=== PATIENT | male | born 1965 | race Caucasian/White ===

== ENCOUNTER 2017-07-28 14:16 | Emergency (ER) | payer BC ==
[~2017-07-28] VITALS: Ht 170.2 cm; Wt 119.0 kg
[~2017-07-28 14:16] MED LIST: ALLO300T2 PO; ASPI81TA28 PO; ATOR-26 PO; CLOP1TAB15 PO; LISI20TA3 PO; METO25TA3 PO; NITR0.4S UT; SULI200T4 PO; TAMS0.4C38 PO
[2017-07-28 14:18] VITALS: TEMP 36.7; Ht 170.2 cm; Wt 119.0 kg
[2017-07-28] MEDS ORDERED: KETOROLAC TROMETHAMINE 30 MG/ML VIAL IV STA (16:12)
[2017-07-28] MEDS ORDERED: HYDROmorphone INJ 1 MG/ML SYR IV STA (16:12)
[2017-07-28] MEDS ORDERED: ONDANSETRON INJ 2 MG/ML 2 ML VIAL IV STA (16:12)
[2017-07-28] MEDS ORDERED: SODIUM CHLORIDE 0.9% 1000ML 1,000 ML IV STA ×2 (16:12)
[2017-07-28 16:36] LABS: BASO % 0.1 %; BASO ABS # 0.01 K/uL (0-0.2); COMPLETE YES; EOS % 0.1 %; HEMATOCRIT 41.4 % (42-52); IG% 0.3 %; LYMPH % 7.6 %; LYMPH ABS # 1.18 K/uL (1.2-3.4); MEAN CORPUSCULAR HGB CONC 34.1 g/dl (32-36); MEAN PLATELET VOLUME 10.4 fL (7.4-10.4); MONO % 7.3 %; NEUT % 84.6 %; PLATELET COUNT 203 K/uL (130-400); RED BLOOD COUNT 4.55 M/uL (4.7-6.1); WHITE BLOOD COUNT 15.54 K/uL (4.8-10.8)
[2017-07-28 16:52] LABS: BUN/CREATININE RATIO 14.1 (10-20); CREATININE 1.8 mg/dl (0.60-1.40); POTASSIUM 4.4 mmol/L (3.5-5.1)
[2017-07-28] MEDS ORDERED: PLV75 PO (16:53)
[2017-07-28] MEDS ORDERED: ALL300 PO (16:53)
[2017-07-28] MEDS ORDERED: TPRSR/25 PO (16:53)
[2017-07-28] MEDS ORDERED: TAMS0.4C38 PO ×2 (16:55→18:54)
--- NOTE | 2017-07-28 17:19 | DIAGNOSTIC IMAGING REPORT ---
ABD/PELVIS WITHOUT FOR STONE HISTORY: 52 years-old Male acute right-sided flank pain COMPARISON: CT 10/13/2015 TECHNIQUE: Multiple axial CT images of the abdomen and pelvis were obtained without contrast. A dose lowering technique was used consistent with the principals of RANJITH. FINDINGS: Calcified granulomas of the right lung base are noted in conjunction with scattered noncalcified pulmonary nodules measuring up to 5 mm, likely noncalcified granulomas, similar distribution from comparison study. There is no pneumoperitoneum. Imaged inferior cardiac chambers are unremarkable. Hepatomegaly with hepatosteatosis redemonstrated. Gallbladder, spleen, pancreas and right adrenal gland are unremarkable. There is unchanged nodular thickening of the left adrenal gland suggesting hyperplasia. There are several nonobstructing calculi within the left kidney measuring up to 4 mm. Multiple nonobstructing renal calculi are also seen on the right measuring up to 3 mm. There is mild right-sided hydroureteronephrosis with associated fat stranding secondary to a 6 x 5 x 6 mm calculus of the distal right ureter which is seen at the level of the mid to lower right sacrum a few centimeters proximal to the ureterovesicular junction. Urinary bladder and prostate are unremarkable with a few central prostatic calcifications. The abdominal aorta is normal in course and caliber without bulky adenopathy. Note is made of a retroaortic left renal vein. Small duodenal diverticulum is noted. No bowel obstruction. The appendix is not seen and may be surgically absent. Soft tissues are unremarkable. Bones appear intact. IMPRESSION: 1. Mild right-sided hydroureteronephrosis secondary to a 6 x 5 x 6 mm calculus of the distal right ureter which is located a few centimeters proximal to the ureterovesicular junction. 2. Multiple additional bilateral nonobstructing nephrolithiasis. 3. Hepatomegaly with hepatosteatosis. 4. Evidence of prior granulomatous disease. The above report was generated using voice recognition software. It may contain grammatical, syntax or spelling errors. Electronically signed by: Ozzy Marquez M.D. 07/28/2017 5:17 PM Dictated Date/Time: 07/28/2017 5:11 PM
[2017-07-28 18:36] LABS: URINE APPEARANCE CLEAR (CLEAR); URINE BILIRUBIN NEG (NEG); URINE COLOR YELLOW; URINE EPITHELIAL CELL AUTO 0-5 /lpf (0-5); URINE NITRITE NEG (NEG); URINE PH 5.5 (4.5-7.5); URINE SPECIFIC GRAVITY 1.027 (1.000-1.030); UROBILINOGEN NEG (NEG)
[2017-07-28 18:41] LABS: MANUAL MICROSCOPIC REQUIRED? NO; REVIEW REQ? NO
[2017-07-28 18:46] VITALS: BP 98/68; PULSE 74; O2SAT 98
[2017-07-28] MEDS ORDERED: OXYC1TAB3 PO (18:54)
[2017-07-28] MEDS ORDERED: ONDA4TAB10 SL (18:54)
--- NOTE | 2017-07-28 18:55 | EMERGENCY ROOM VISIT NOTE ---
ED Visit Note First contact with patient: 16:07 CHIEF COMPLAINT: Right flank pain 2 days HISTORY OF PRESENT ILLNESS: Patient is a 52-year-old white male who presents to the emergency department for evaluation of right flank pain 2 days. He states developed a sudden onset of very intense, severe right flank pain wrapping around to the right lower quadrant Friday, 2 days ago. The pain lasted for about 4 hours, then suddenly resolved. He thought he may have passed a stone. Symptoms returned again last evening around 5 PM. Similar severe pain in the right flank radiating to the right lower quadrant and the right groin. He noted hematuria 2 days ago, and again last night, but none today. He reports associated nausea, dry heaves, subjective fever and chills and sweats. He had a leftover prescription for Flomax from his prior kidney stone from 2 years ago, he took this in addition to his Lasix, without relief. He initially rated his pain an 8/10 in triage, in the exam room now he rates his pain a "10.5/10." He has not tried any medications for pain. He last urinated about 8 hours ago. He feels like he has the urge to void but he cannot. He stopped drinking because he was unable to urinate. He denies any vomiting, diarrhea or constipation. Prior kidney stones he has been able to pass on his own. REVIEW OF SYSTEMS: Review of systems as per HPI. All other systems reviewed were negative. 10 systems reviewed. PMH: Electronic medical records are reviewed and summarized as above/below. See Problem List. SOCIAL HISTORY: Patient lives at home with his . He does not smoke. PHYSICAL EXAM: Vital Signs: Reviewed Nurse's notes. CONSTITUTIONAL: Patient is uncomfortable appearing 52-year-old white male who is awake and alert and in moderate distress due to his stated complaint. EYES: Pupils equal, round, reactive to light and accommodation. EOMs intact without nystagmus. Sclera are anicteric. ENT: Tympanic membranes intact, with normal landmarks. External canals are clear. Oral and nasopharynx are clear. Mucous membranes are moist, no lesions , tongue and gums appear normal. NECK: Supple without lymphadenopathy. No thyromegaly. No meningeal signs. Full active range of motion without discomfort. CARDIOVASCULAR: Regular rate and rhythm, with normal S1 and S2, no murmur or gallop or rub is heard. No carotid bruits auscultated. No JVD. Peripheral pulses easily palpable. RESPIRATORY: Breath sounds equal and clear to auscultation without wheezes, rales, or rhonchi heard. Full and equal chest expansion without accessory muscle use or retractions. ABDOMEN: Bowel sounds are present. Abdomen is soft, obese, nontender and nondistended. No guarding or rebound. Positive right CVA tenderness. INTEGUMENTARY: No lesions or rash, normal skin turgor. LYMPH: No lymphadenopathy. EMERGENCY DEPARTMENT COURSE: The patient was seen and examined as above. His old records were reviewed. Bladder scan was from a nursing staff due to the reported urinary retention, he had only 227 mL of urine in the bladder. IV lock was initiated. He was hydrated with normal saline solution and medicated with Toradol, Zofran and Dilaudid for pain. CBC and CMP, lipase and urinalysis ordered. CT scan was ordered to evaluate his right flank pain. Laboratory studies noted a an elevated white count at 15,500, likely related to the stress of pain and illness. H&H 14 and 41, platelet count is normal. Electrolytes are without significant abnormality. He has slight elevation of his BUN and creatinine, 25 and 1.8 respectively. He did have a slightly elevated creatinine couple of years ago, could be related to early chronic kidney disease, may be exacerbated today due to dehydration. LFTs are normal. Lipase is normal. Urinalysis notes hematuria only. No other indicators for infection. CT scan of the abdomen and pelvis noted bilateral nephrolithiasis, and a roughly 6 mm distal right ureteral calculi. All laboratory and diagnostic imaging studies were reviewed with the patient and his at length. The patient was reassessed frequently, and remained pain-free in the emergency department. He tolerated oral fluids without difficulty. He was issued a urine strainer. He was given a prescription for Flomax, oxycodone and Zofran to use. Supportive care measures were discussed. He was educated on the worrisome signs or symptoms for which she should return to the emergency department. He was discharged home with his driving in good condition. He rated his pain a 0/10 at discharge. Differential diagnoses entertained included UTI, pyelonephritis, renal colic, urinary retention, appendicitis, bowel obstruction, perforation, abscess, testicular torsion, hernia, among others. Medication reconciliation: I attest that I have personally reviewed the patient' s current medication list. Blood pressure screening : Patient was found to have normal blood pressure on screening and does not require follow-up. Patient was reviewed in the [facility] Prescription Drug Monitoring Program, and there were no red flags noted. ABD/PELVIS WITHOUT FOR STONE HISTORY: 52 years-old Male acute right-sided flank pain COMPARISON: CT 10/13/2015 TECHNIQUE: Multiple axial CT images of the abdomen and pelvis were obtained without contrast. A dose lowering technique was used consistent with the principals of RANJITH. FINDINGS: Calcified granulomas of the right lung base are noted in conjunction with scattered noncalcified pulmonary nodules measuring up to 5 mm, likely noncalcified granulomas, similar distribution from comparison study. There is no pneumoperitoneum. Imaged inferior cardiac chambers are unremarkable. Hepatomegaly with hepatosteatosis redemonstrated. Gallbladder, spleen, pancreas and right adrenal gland are unremarkable. There is unchanged nodular thickening of the left adrenal gland suggesting hyperplasia. There are several nonobstructing calculi within the left kidney measuring up to 4 mm. Multiple nonobstructing renal calculi are also seen on the right measuring up to 3 mm. There is mild right-sided hydroureteronephrosis with associated fat stranding secondary to a 6 x 5 x 6 mm calculus of the distal right ureter which is seen at the level of the mid to lower right sacrum a few centimeters proximal to the ureterovesicular junction. Urinary bladder and prostate are unremarkable with a few central prostatic calcifications. The abdominal aorta is normal in course and caliber without bulky adenopathy. Note is made of a retroaortic left renal vein. Small duodenal diverticulum is noted. No bowel obstruction. The appendix is not seen and may be surgically absent. Soft tissues are unremarkable. Bones appear intact. IMPRESSION: 1. Mild right-sided hydroureteronephrosis secondary to a 6 x 5 x 6 mm calculus of the distal right ureter which is located a few centimeters proximal to the ureterovesicular junction. 2. Multiple additional bilateral nonobstructing nephrolithiasis. 3. Hepatomegaly with hepatosteatosis. 4. Evidence of prior granulomatous disease. Problem List Medical Problems: (1) Abnormal EKG Status: Resolved (2) Arthropathy Status: Resolved (3) Calculus Of Kidney With Calculus Of Ureter Status: Resolved (4) Chest pain Status: Resolved (5) Coronary Atherosclerosis Of [place] Coronary Vessel Status: Chronic (6) Gout Status: Chronic (7) Hyperlipidemia Nec/Nos Status: Chronic (8) Hypertension Nos Status: Chronic (9) Inability to ambulate due to knee Status: Resolved (10) Inability to ambulate due to right hip Status: Resolved (11) Intractable pain Status: Resolved (12) Knee effusion, right Status: Resolved (13) Knee pain Status: Resolved (14) Left ureteral stone Status: Resolved (15) Old Myocardial Infarct Status: Resolved (16) Pulmonary nodule Status: Chronic (17) Unspecified Sleep Apnea Status: Chronic Surgical Problems: (1) History of uvulopalatopharyngoplasty Status: Resolved (2) Percutaneous Translum Coron Angioplasty Status Status: Chronic Current/Historical Medications Scheduled Allopurinol (Allopurinol), 300 MG PO DAILY Aspirin (Aspirin Ec), 81 MG PO DAILY Atorvastatin (Lipitor), 80 MG PO DAILY Clopidogrel Bisulfate (Clopidogrel), 75 MG PO HOLD Lisinopril (Prinivil), 20 MG PO DAILY Metoprolol Succinate (Metoprolol Succinate ER), 12.5 MG PO DAILY Tamsulosin Hcl (Flomax), 0.4 MG PO DAILY Scheduled PRN Nitroglycerin (Nitrostat), 0.4 MG UT UD PRN for Chest Pain Ondasetron Odt (Zofran Odt), 4 MG SL Q6H PRN for Nausea or Vomiting Oxycodone Immediate Rel Tab (Roxicodone Ir), 1-2 TAB PO Q4H PRN for Severe Pain Tamsulosin Hcl (Flomax), 0.4 MG PO DAILY PRN for Difficulty Voiding Allergies Coded Allergies: No Known Allergies (Unverified , 10/13/15) Vital Signs Date Time Temp Pulse Resp B/P (MAP) Pulse Ox O2 Delivery O2 Flow Rate FiO2 07/28/17 18:46 74 18 98/68 98 Room Air 07/28/17 16:21 96 20 140/94 96 Room Air 07/28/17 14:18 36.7 98 18 166/80 94 Room Air Laboratory Results 07/28/17 16:25 Red Blood Count 4.55, Mean Corpuscular Volume 91.0, Mean Corpuscular Hemoglobin 31.0, Mean Corpuscular Hemoglobin Concent 34.1, Mean Platelet Volume 10.4, Neutrophils (%) (Auto) 84.6, Lymphocytes (%) (Auto) 7.6, Monocytes (%) (Auto) 7.3, Eosinophils (%) (Auto) 0.1, Basophils (%) (Auto) 0.1, Neutrophils # (Auto) 13.16, Lymphocytes # (Auto) 1.18, Monocytes # (Auto) 1.14, Eosinophils # (Auto) 0.01, Basophils # (Auto) 0.01 07/28/17 16:25 Test 07/28/17 16:25 07/28/17 17:58 White Blood Count 15.54 K/uL (4.8-10.8) Red Blood Count 4.55 M/uL (4.7-6.1) Hemoglobin 14.1 g/dL (14.0-18.0) Hematocrit 41.4 % (42-52) Mean Corpuscular Volume 91.0 fL (80-100) Mean Corpuscular Hemoglobin 31.0 pg (25-34) Mean Corpuscular Hemoglobin Concent 34.1 g/dl (32-36) Platelet Count 203 K/uL (130-400) Mean Platelet Volume 10.4 fL (7.4-10.4) Neutrophils (%) (Auto) 84.6 % Lymphocytes (%) (Auto) 7.6 % Monocytes (%) (Auto) 7.3 % Eosinophils (%) (Auto) 0.1 % Basophils (%) (Auto) 0.1 % Neutrophils # (Auto) 13.16 K/uL (1.4-6.5) Lymphocytes # (Auto) 1.18 K/uL (1.2-3.4) Monocytes # (Auto) 1.14 K/uL (0.11-0.59) Eosinophils # (Auto) 0.01 K/uL (0-0.5) Basophils # (Auto) 0.01 K/uL (0-0.2) RDW Standard Deviation 47.0 fL (36.4-46.3) RDW Coefficient of Variation 14.3 % (11.5-14.5) Immature Granulocyte % (Auto) 0.3 % Immature Granulocyte # (Auto) 0.04 K/uL (0.00-0.02) Anion Gap 6.0 mmol/L (3-11) Est Creatinine Clear Calc Drug Dose 59.3 ml/min Estimated GFR () 49.1 Estimated GFR (Non- 42.3 BUN/Creatinine Ratio 14.1 (10-20) Calcium Level 9.0 mg/dl (8.5-10.1) Total Bilirubin 1.0 mg/dl (0.2-1) Aspartate Amino Transf (AST/SGOT) 23 U/L (15-37) Alanine Aminotransferase (ALT/SGPT) 43 U/L (12-78) Alkaline Phosphatase 156 U/L (45-117) Total Protein 7.7 gm/dl (6.4-8.2) Albumin 3.8 gm/dl (3.4-5.0) Globulin 3.9 gm/dl (2.5-4.0) Albumin/Globulin Ratio 1.0 (0.9-2) Lipase 127 U/L (73-393) Urine Color YELLOW Urine Appearance CLEAR (CLEAR) Urine pH 5.5 (4.5-7.5) Urine Specific [place] 1.027 (1.000-1.030) Urine Protein NEG (NEG) Urine Glucose (UA) NEG (NEG) Urine Ketones NEG (NEG) Urine Occult Blood 3+ (NEG) Urine Nitrite NEG (NEG) Urine Bilirubin NEG (NEG) Urine Urobilinogen NEG (NEG) Urine Leukocyte Esterase NEG (NEG) Urine WBC (Auto) 1-5 /hpf (0-5) Urine RBC (Auto) 10-30 /hpf (0-4) Urine Hyaline Casts (Auto) 1-5 /lpf (0-5) Urine Epithelial Cells (Auto) 0-5 /lpf (0-5) Urine Bacteria (Auto) NEG (NEG) Medications Administered Medications (Trade) Dose Ordered Sig/Nilson Route Start Time Stop Time Status Last Admin Dose Admin Sodium Chloride 1,000 ml @ 999 mls/hr Q1H1M STAT IV 07/28/17 16:12 07/28/17 17:12 DC 07/28/17 16:35 999 MLS/HR Sodium Chloride 1,000 ml @ 250 mls/hr Q4H STAT IV 07/28/17 16:12 07/28/17 19:36 DC 07/28/17 17:49 250 MLS/HR Hydromorphone HCl (Dilaudid Inj) 1 mg NOW STAT IV 07/28/17 16:12 07/28/17 16:21 DC 07/28/17 16:35 1 MG Ketorolac Tromethamine (Toradol Inj) 30 mg NOW STAT IV 07/28/17 16:12 07/28/17 16:21 DC 07/28/17 16:36 30 MG Ondansetron HCl (Zofran Inj) 4 mg NOW STAT IV 07/28/17 16:12 07/28/17 16:21 DC 07/28/17 16:36 4 MG Departure Information Impression Primary Impression: Right ureteral calculus Additional Impression: Renal colic Prescriptions Oxycodone Immediate Rel Tab (ROXICODONE IR) 5 Mg Tab 1-2 TAB PO Q4H Y for Severe Pain, #25 TAB For Initial Treatment Prov: Francie Brantley PA 07/28/17 Ondasetron Odt (ZOFRAN ODT) 4 Mg Tab 4 MG SL Q6H Y for Nausea or Vomiting, #20 TAB Prov: Francie Brantley PA 07/28/17 Tamsulosin Hcl (FLOMAX) 0.4 Mg Cap 0.4 MG PO DAILY, #20 CAP Prov: Francie Brantley PA 07/28/17 Referrals Edenilson Ott D.Artur (PCP) Patient Instructions [facility] Additional Instructions DO NOT drive, drink alcohol, operate machinery, or perform dangerous activities today. You were given medications in the ER that can affect your ability to safely function or operate a vehicle. Oxycodone Immediate Release (OxyIR) 5mg: Take 1-2 pills every four hours for pain. Avoid alcohol, operating machinery or dangerous equipment, working on ladders or roofs, DRIVING, or situations where being under the influence may be dangerous. It is recommended to use an [id number] stool softener such as Colace, 100mg twice daily while taking this medication to avoid constipation. Zofran(odansetron) tablets 4mg: Take one and allow it to dissolve in your mouth every four to six hours as needed for nausea or vomiting. Flomax 0.4 m tablet daily until stone passes. Acetaminophen(Tylenol) may be used for fever or pain. Use 1000mg every six hours as needed. Avoid using more than 4000mg in a 24 hour period. This medication can be taken if you need to drive, work, or perform activities which may be dangerous when taking narcotic pain medication. Strain your urine and collect all the stones or debris for the urologists. Rest and avoid strenuous activity until your stone passes and symptoms resolve. Drink plenty of fluids. Continue current medications. Return to the ER for worsening abdominal or back pain, vomiting, fevers, passing out, or as needed. Follow up with your primary care physician in one week for recheck. Follow-up with urology as needed. Problem Qualifiers
== END 2017-07-28 19:08 | disposition home or self-care (01) ==
LOC: C.EDB 14:19 → C.EDA 19:08
DX: N13.2 Hydronephrosis with renal and ureteral calculous obstruction (principal); N23 Unspecified renal colic; M10.9 Gout, unspecified; I25.10 Atherosclerotic heart disease of native coronary artery without angina pectoris; E78.5 Hyperlipidemia, unspecified; I10 Essential (primary) hypertension; I25.2 Old myocardial infarction; G47.30 Sleep apnea, unspecified; Z95.5 Presence of coronary angioplasty implant and graft; Z79.82 Long term (current) use of aspirin; Z79.899 Other long term (current) drug therapy

== ENCOUNTER → 2017-08-08 | Outpatient (CLI) | payer BC ==
[~2017-08-08] MED LIST changes: +ALL300 PO; -ALLO300T2 PO; -CLOP1TAB15 PO; -METO25TA3 PO; +ONDA4TAB10 SL; +OXYC1TAB3 PO; +PLV75 PO; -SULI200T4 PO; +TPRSR/25 PO
--- NOTE | 2017-08-08 13:43 | DIAGNOSTIC IMAGING REPORT ---
KUB CLINICAL HISTORY: Nephrolithiasis. DISTAL RIGHT URETERAL CALCULUS. COMPARISON STUDY: CT scan dated 07/28/2017 FINDINGS: There is no pathologic bowel dilatation. There are multiple tiny left renal calcifications consistent with calculi. At least one right renal calculus is also suspected. There are 3 right-sided pelvic basin calcifications. The superiormost calcification likely corresponds to the previously described distal right ureteral calculus. IMPRESSION: 1. No evidence of pathologic bowel dilatation 2. Bilateral nephrolithiasis 3. Suspected 4 mm distal right ureteral calculus Electronically signed by: Gomez Jane M.D. 08/08/2017 1:41 PM Dictated Date/Time: 08/08/2017 1:38 PM
== END | disposition home or self-care (01) ==
LOC: C.RAD 13:13
PROVIDERS: ATTEND Urology
DX: N20.0 Calculus of kidney (principal)

== ENCOUNTER → 2017-09-08 | Outpatient (CLI) | payer BC | END | disposition home or self-care (01) | LOC: C.LABSPEC 10:05 | PROVIDERS: ATTEND Urology | DX: N20.0 Calculus of kidney (principal) ==

== ENCOUNTER 2022-12-04 13:15 | Observation (INO) ==
[2022-12-04 14:25] LABS: Basophils # (auto) 0.02 K/uL (0-0.2); Basophils % (auto) 0.2 %; Eosinophils # (auto) 0.06 K/uL (0-0.50); Eosinophils % (auto) 0.5 %; Hemoglobin 15.4 g/dl (14.0-18.0); Immature Granulocytes # (auto) 0.04 K/uL (0.00-0.02); Immature Granulocytes % (auto) 0.3 %; Lymphocytes # (auto) 2.01 K/uL (1.2-3.4); Lymphocytes % (auto) 17.3 %; Mean Corpuscular Hemoglobin 32.1 pg (25.0-34.0); Mean Corpuscular Volume 91.7 fL (80.0-100.0); Mean Platelet Volume 11.2 fL (9.4-12.4); Monocytes # (auto) 0.63 K/uL (0.24-0.82); Monocytes % (auto) 5.4 %; Neutrophils # (auto) 8.83 K/uL (1.4-6.5); Neutrophils % (auto) 76.3 %; Platelet Count 209 K/uL (130-400); RDW Coefficient of Variation 13.1 % (11.5-14.5); RDW Standard Deviation 43.8 fL (36.4-46.3); White Blood Count 11.59 K/ul (4.8-10.8)
[2022-12-04 14:52] LABS: Albumin Globulin Ratio 1.4 (0.9-2); Albumin Level 4.3 gm/dl (3.4-5.0); BUN Creatinine Ratio 17.6 (10-20); Bilirubin,Total 0.7 mg/dl (0.2-1.0); Calcium 8.9 mg/dl (8.5-10.1); Creatinine Clr Calc Pharmacy 94.5 ml/min; Est GFR (African American) 87.8 ml/min; Est GFR (Non-African American) 75.8 ml/min; Globulin 3.1 gm/dl (2.5-4.0); Potassium 4.6 mmol/L (3.5-5.1); Total Protein 7.4 gm/dl (6.0-8.3)
[2022-12-04 14:53] LABS: Troponin I High Sensitivity 6.1 pg/ml (0-20)
--- NOTE | 2022-12-04 15:23 | Electrocardiogram Report ---
Test Reason : Blood Pressure : / mmHG Vent. Rate : 127 BPM Atrial Rate : 127 BPM P-R Int : 146 ms QRS Dur : 084 ms QT Int : 300 ms P-R-T Axes : 015 -12 021 degrees QTc Int : 436 ms Sinus tachycardia Otherwise normal ECG When compared with ECG of 11-OCT-2013 09:10, Vent. rate has increased BY 50 BPM Nonspecific T wave abnormality no longer evident in Lateral leads Confirmed by Tramaine Tavares ([id number]) on 12/04/2022 3:22:34 PM Referred By: Confirmed By:Tramaine Tavares
[2022-12-04] MEDS ORDERED: SODIUM CHLORIDE 0.9% 1000ML 1,000 ML IV ONE (15:27)
[2022-12-04] MEDS ORDERED: MECLIZINE HCL 25 MG TAB PO STA (15:27)
--- NOTE | 2022-12-04 15:52 | Emergency Department Note ---
Impression & Plan Dizziness, Pulmonary edema, Cardiomegaly ED Provider Note HISTORY OF PRESENT ILLNESS: Patient is a 57-year-old male presenting with recurrent episodes of dizziness. Patient reports that he has been having episodes of dizziness described as the room spinning for the last few weeks. Reports the episodes occur at random. States that he does seem to notice them when he is changing positions from seated to standing or laying to sitting. He denies any history of vertigo. Denies any recent head injuries or chiropractic manipulation of his neck. Denies any chest pain or shortness of breath. Reports that today while at work he had an episode of dizziness that lasted for about 2 hours. He also had some pain in the left side of his neck. He reports he had an MRI a number of years ago and has a stent in place and the neck pain was similar to his anginal equivalent denies any nausea or vomiting. Denies any changes in vision with the dizziness. Reports his dizziness seems to stop on its own. Denies any recent fevers. Is on aspirin daily. Patient does report that over the last few days he has had some shortness of breath with exertion. Denies any lower extremity edema. Denies any DVT or PE history. ROS: Constitutional: No fever, chills, or weakness Skin: No rash or diaphoresis HENT: No headaches or congestion Eyes: No vision changes Cardio: No chest pain, palpitations or leg swelling Respiratory: No cough, wheezing +Shortness of breath GI: No nausea, vomiting, diarrhea, constipation : No dysuria, polyuria MSK: No joint or back pain Neuro: No loss of sensation, confusion, focal deficits, numbness, tingling +dizziness Psychiatric: No mood changes PHYSICAL EXAM: Constitutional: Patient appears in no acute distress. HENT: Head: Normocephalic and atraumatic. Eyes: EOMI, PERRL. No nystagmus elicited. Ears: TM intact without erythema or bulging. External canals without erythema or discharge. Mouth/Throat: Mucous membranes moist. Neck: Trachea midline. Neck supple. Full ROM of neck without meningismus. Cardiovascular: Tachycardic with regular rhythm. No murmurs, rubs or gallops. Intact distal pulses. Pulmonary/Chest: No respiratory distress. Breath sounds clear and equal bilaterally. No wheezes or rales. Abdominal: BS +. Abdomen soft, no tenderness, rebound or guarding. Back: No midline spinal tenderness, no paraspinal tenderness, no CVA tenderness. Musculoskeletal: No edema, tenderness or deformity noted. Skin: Warm and dry. No rash, erythema, pallor or cyanosis Psychiatric: Appropriate mood and affect for situation. Neurological: Alert and keenly responsive. CN II-XII grossly intact, moving all extremities equally and fully. MDM: - Vitals signs showed tachycardia. - Patient presents with recurrent episodes of dizziness. Patient reports that he has been having multiple episodes of dizziness described as the room spinning over the last few weeks. He had an episode today that lasted around 2 hours and he had some neck pain which is his anginal equivalent, prompting him to present to the emergency department. He is on aspirin. Denies any chest pain or shortness of breath. Denies any headache or changes in vision. - IV established and patient placed on monitor. Patient remained tachycardic for most of his stay in the emergency department - Chronic medical conditions affecting medical care: CAD (s/p PCI); HTN; DM-2 - No external medical records to review. - EKG reviewed by myself showed sinus tachycardia. Heart rate 127 bpm. No evidence of acute ischemic changes or dysrhythmia. - Laboratory workup showed leukocytosis (WBC 11.59); stable hemoglobin; normal dimer; stable electrolytes; normal troponin; transaminitis (AST 43; ALT 63); normal TSH - CT head wo contrast negative for acute intracranial pathology. - CT PE not obtained, as patient's dimer was negative. - Patient given 1L NS in ER with slight improvement in HR down to the low 100s. Given dose of antivert in ER with slight improvement in dizziness. - Dizziness likely secondary to vertigo. However, given patient's cardiac risk factors, will offer admission. - Differential diagnosis included the possibility of both PE and ACS. Regarding PE, dimer negative. - Regarding the possibility of ACS, ECG is without evidence of acute ischemic change. Heart score 4 (History +1 moderately suspicious; EKG +0; Age +1; Risk factors +2 (HTN; DM-2; obesity); Initial troponin +0), amounting to a moderate score. - Discussed results with patient and at bedside. Offered admission, to which they were agreeable. - Hospitalist consulted for admission. - Patient admitted to inpatient [facility]ist service for further evaluation and management. ASSESSMENT AND PLAN: Diagnosis: dizziness; tachycardia; pulmonary edema; cardiomegaly Plan: admit Past Med/Surg History Social History Smoking Status: Never smoker Preferred Language: Kazakh Feels Safe at Home: Yes Allergies Allergies Allergy/AdvReac Type Severity Reaction Status Date / Time No Known Allergies Allergy Unverified 12/04/22 17:33 Home Meds Home Medications Medication Instructions Recorded Confirmed allopurinol 300 mg tablet 300 mg PO QAM 12/04/22 12/04/22 aspirin 81 mg tablet,delayed 81 mg PO DAILY 12/04/22 12/04/22 release atorvastatin 80 mg tablet 80 mg PO QAM 12/04/22 12/04/22 lisinopril 10 mg tablet 10 mg PO QAM 12/04/22 12/04/22 metformin 500 mg tablet,extended 1,000 mg PO QAM 12/04/22 12/04/22 release 24 hr nitroglycerin 0.4 mg sublingual 0.4 mg sublingual UD PRN Chest Pain 12/04/22 12/04/22 tablet (Nitrostat) semaglutide 3 mg tablet (Rybelsus) 3 mg PO QAM 12/04/22 12/04/22 sulindac 200 mg tablet 200 mg PO BID PRN as directed 12/04/22 12/04/22 Results & Data (ED) Vital Signs Vital Signs - 24 hr 12/04/22 13:24 12/04/22 15:10 12/04/22 17:00 Temperature 37.2 C Temperature Source Temporal Artery Scan Pulse Rate 134 H Pulse Rate [Apical] 119 H 105 H Pulse Rhythm Regular Pulse Rhythm [Apical] Regular Pulse Strength Normal Pulse Strength [Apical] Normal Respiratory Rate 20 20 18 Respiratory Effort / Characteristics Non-Labored Spontaneous Non-Labored Spontaneous Respiratory Depth Normal Normal Respiratory Pattern Regular Regular Blood Pressure 141/81 H Blood Pressure [Left Arm] 127/81 142/95 H Blood Pressure Mean 101 Blood Pressure Mean [Left Arm] 96 110 Blood Pressure Position Sitting Blood Pressure Position [Left Arm] Sitting Pulse Oximetry 95 94 95 Oxygen Delivery Method Room Air Room Air Sepsis Recent Fever Within 48 Hours No Sepsis New/Unexplained Change in Mental Status No Sepsis Action Taken by Nursing No Action Required 12/04/22 17:21 Temperature Temperature Source Pulse Rate Pulse Rate [Apical] Pulse Rhythm Pulse Rhythm [Apical] Pulse Strength Pulse Strength [Apical] Respiratory Rate Respiratory Effort / Characteristics Respiratory Depth Respiratory Pattern Blood Pressure Blood Pressure [Left Arm] Blood Pressure Mean Blood Pressure Mean [Left Arm] Blood Pressure Position Blood Pressure Position [Left Arm] Pulse Oximetry Oxygen Delivery Method Room Air Sepsis Recent Fever Within 48 Hours Sepsis New/Unexplained Change in Mental Status Sepsis Action Taken by Nursing Laboratory Data 12/04/22 14:10 12/04/22 14:10 Lab Results 12/04/22 12/04/22 12/04/22 Range/Units 13:29 14:10 14:10 WBC 11.59 H (4.8-10.8) K/ul RBC 4.80 (4.63-6.08) M/uL Hgb 15.4 (14.0-18.0) g/dl Hct 44.0 (40.1-51.0) % MCV 91.7 (80.0-100.0) fL MCH 32.1 (25.0-34.0) pg MCHC 35.0 (32.0-36.0) g/dL RDW Std Deviation 43.8 (36.4-46.3) fL RDW Coeff of Mauricio 13.1 (11.5-14.5) % Plt Count 209 (130-400) K/uL MPV 11.2 (9.4-12.4) fL Immature Gran % (Auto) 0.3 % Neut % (Auto) 76.3 % Lymph % (Auto) 17.3 % Waldo % (Auto) 5.4 % Eos % (Auto) 0.5 % Baso % (Auto) 0.2 % Neut # (Auto) 8.83 H (1.4-6.5) K/uL Lymph # (Auto) 2.01 (1.2-3.4) K/uL Waldo # (Auto) 0.63 (0.24-0.82) K/uL Eos # (Auto) 0.06 (0-0.50) K/uL Baso # (Auto) 0.02 (0-0.2) K/uL Immature Gran # (Auto) 0.04 H (0.00-0.02) K/uL D-Dimer (0-500) ug/L FEU Sodium 137 (136-145) mmol/L Potassium 4.6 (3.5-5.1) mmol/L Chloride 103 (98-107) mmol/L Carbon Dioxide 25 (21-32) mmol/L Anion Gap 9 (3-11) BUN 19 (6-23) mg/dl Creatinine 1.08 (0.6-1.4) mg/dl Est Cr Clr Drug Dosing 94.5 ml/min Est GFR ( Amer) 87.8 ml/min Est GFR (Non-Af Amer) 75.8 ml/min BUN/Creatinine Ratio 17.6 (10-20) Glucose 161 H (70-99(Fasting)) mg/dl POC Glucose 156 H (70-99) mg/dl Calcium 8.9 (8.5-10.1) mg/dl Total Bilirubin 0.7 (0.2-1.0) mg/dl AST 43 H (13-39) U/L ALT 63 H (7-52) U/L Alkaline Phosphatase 162 H (34-104) U/L Troponin I High Sens 6.1 (0-20) pg/ml B-Natriuretic Peptide (0-100) pg/ml Total Protein 7.4 (6.0-8.3) gm/dl Albumin 4.3 (3.4-5.0) gm/dl Globulin 3.1 (2.5-4.0) gm/dl Albumin/Globulin Ratio 1.4 (0.9-2) TSH (0.300-4.500) uIu/ml 12/04/22 12/04/22 12/04/22 Range/Units 14:10 14:10 16:36 WBC (4.8-10.8) K/ul RBC (4.63-6.08) M/uL Hgb (14.0-18.0) g/dl Hct (40.1-51.0) % MCV (80.0-100.0) fL MCH (25.0-34.0) pg MCHC (32.0-36.0) g/dL RDW Std Deviation (36.4-46.3) fL RDW Coeff of Mauricio (11.5-14.5) % Plt Count (130-400) K/uL MPV (9.4-12.4) fL Immature Gran % (Auto) % Neut % (Auto) % Lymph % (Auto) % Waldo % (Auto) % Eos % (Auto) % Baso % (Auto) % Neut # (Auto) (1.4-6.5) K/uL Lymph # (Auto) (1.2-3.4) K/uL Waldo # (Auto) (0.24-0.82) K/uL Eos # (Auto) (0-0.50) K/uL Baso # (Auto) (0-0.2) K/uL Immature Gran # (Auto) (0.00-0.02) K/uL D-Dimer 210 (0-500) ug/L FEU Sodium (136-145) mmol/L Potassium (3.5-5.1) mmol/L Chloride (98-107) mmol/L Carbon Dioxide (21-32) mmol/L Anion Gap (3-11) BUN (6-23) mg/dl Creatinine (0.6-1.4) mg/dl Est Cr Clr Drug Dosing ml/min Est GFR ( Amer) ml/min Est GFR (Non-Af Amer) ml/min BUN/Creatinine Ratio (10-20) Glucose (70-99(Fasting)) mg/dl POC Glucose (70-99) mg/dl Calcium (8.5-10.1) mg/dl Total Bilirubin (0.2-1.0) mg/dl AST (13-39) U/L ALT (7-52) U/L Alkaline Phosphatase (34-104) U/L Troponin I High Sens (0-20) pg/ml B-Natriuretic Peptide 8 (0-100) pg/ml Total Protein (6.0-8.3) gm/dl Albumin (3.4-5.0) gm/dl Globulin (2.5-4.0) gm/dl Albumin/Globulin Ratio (0.9-2) TSH 0.946 (0.300-4.500) uIu/ml Administered Medications Discontinued Medications Sodium Chloride (Nss 1000ml) 1,000 mls @ 999 mls/hr IV .[id number] ONE Stop: 12/04/22 16:27 Last Infusion: 12/04/22 17:35 Dose: 0 mls/hr Documented By: Admin: 12/04/22 16:00 Dose: 999 mls/hr Documented By: DANE Meclizine HCl (Meclizine Hcl 25 Mg Tab) 25 mg PO NOW STA Stop: 12/04/22 15:28 Last Admin: 12/04/22 16:00 Dose: 25 mg Documented By: AY Imaging Data Radiologist's Impression: Head CT 12/04/22 15:52 CT SCAN OF THE BRAIN WITHOUT IV CONTRAST CLINICAL HISTORY: Dizziness. COMPARISON STUDY: No priors. TECHNIQUE: Unenhanced axial CT scan of the brain is performed from the vertex to the skull base. A dose lowering technique was utilized adhering to the principles of ALARA. CT DOSE: 537.48 mGy.cm FINDINGS: Brain parenchyma: There is minimal subcortical and periventricular microangiopathic disease. There is no hemorrhage, mass effect, or evidence of acute territorial ischemia by CT criteria. A chronic lacunar infarct is noted in the left basal ganglia. Chairez-white matter differentiation is preserved. No extra-axial fluid collection is seen. Ventricles, sulci, cisterns: Normal configuration. Intracranial vasculature: There is atherosclerotic calcification of the cavernous carotid arteries. Calvarium: Unremarkable. Sinuses and mastoids: The visualized paranasal sinuses are clear. There is trace left mastoid effusion. The right mastoid air cells are well pneumatized. Orbits: The bony orbits are grossly intact. IMPRESSION: There is no hemorrhage, mass effect, or evidence of acute territo rial ischemia by CT criteria. ACT 112: Negative or not required by law. Electronically signed by: Michele Nicholson M.D. 12/04/2022 4:55 PM Chest X-Ray 12/04/22 15:53 XR chest 2V PA/lateral CLINICAL HISTORY: dizziness TECHNIQUE: 2 views of the chest were obtained. Comparison: Comparison is made to chest radiograph 10/07/2013 FINDINGS: No lines and tubes are seen. Cardiomegaly is noted. Prominence and cephalization of the vasculature is seen. No evidence of pleural effusion or pneumothorax. IMPRESSION: Cardiomegaly and mild pulmonary edema. ACT 112: Negative or not required by law. Electronically signed by: Davidson Lozano M.D. 12/04/2022 4:56 PM Discharge Plan Visit Data Chief Complaint: Dizziness Stated Complaint: DIZZINESS ED Provider: Chrissie Baugh Discharge Problem: Dizziness, Pulmonary edema, Cardiomegaly Forms Stand Alone Forms: [facility] Prescriptions Prescriptions: No Action atorvastatin 80 mg tablet 80 mg PO QAM lisinopril 10 mg tablet 10 mg PO QAM allopurinol 300 mg tablet 300 mg PO QAM metformin 500 mg tablet extended release 24 hr 1,000 mg PO QAM aspirin [Aspirin Low-Strength] 81 mg Tablet,Delayed Release (Dr/Ec) 81 mg PO DAILY nitroglycerin [Nitrostat] 0.4 mg Tablet, Sublingual 0.4 mg sublingual UD PRN (Reason: Chest Pain) sulindac 200 mg Tablet 200 mg PO BID PRN (Reason: as directed) Rybelsus 3 mg Tablet 3 mg PO QAM Referrals Referrals: Edenilson Ott, [Primary Care Provider] -
[2022-12-04 16:42] LABS: D Dimer 210 ug/L FEU (0-500)
--- NOTE | 2022-12-04 16:56 | CT Scan Report ---
CT SCAN OF THE BRAIN WITHOUT IV CONTRAST CLINICAL HISTORY: Dizziness. COMPARISON STUDY: No priors. TECHNIQUE: Unenhanced axial CT scan of the brain is performed from the vertex to the skull base. A do se lowering technique was utilized adhering to the principles of ALARA. CT DOSE: 537.48 mGy.cm FINDINGS: Brain parenchyma: There is minimal subcortical and periventricular microangiopathic disease. There is no hemorrhage, mass effect, or evidence of acute territorial ischemia by CT criteria. A chronic lacu chivo infarct is noted in the left basal ganglia. Chairez-white matter differentiation is preserved. No ex tra-axial fluid collection is seen. Ventricles, sulci, cisterns: Normal configuration. Intracranial vasculature: There is atherosclerotic calcification of the cavernous carotid arteries. Calvarium: Unremarkable. Sinuses and mastoids: The visualized paranasal sinuses are clear. There is trace left mastoid effusio n. The right mastoid air cells are well pneumatized. Orbits: The bony orbits are grossly intact. IMPRESSION: There is no hemorrhage, mass effect, or evidence of acute territorial ischemia by CT fran martinez. ACT 112: Negative or not required by law. Electronically signed by: Michele Nicholson M.D. 12/04/2022 4:55 PM
--- NOTE | 2022-12-04 16:57 | XRay Report ---
XR chest 2V PA/lateral CLINICAL HISTORY: dizziness TECHNIQUE: 2 views of the chest were obtained. Comparison: Comparison is made to chest radiograph 10/07/2013 FINDINGS: No lines and tubes are seen. Cardiomegaly is noted. Prominence and cephalization of the vasculature i s seen. No evidence of pleural effusion or pneumothorax. IMPRESSION: Cardiomegaly and mild pulmonary edema. ACT 112: Negative or not required by law. Electronically signed by: Davidson Lozano M.D. 12/04/2022 4:56 PM
--- NOTE | 2022-12-04 18:19 | History & Physical Report ---
Date of Service December 04, 2022 Assessment & Plan (1) Dizziness: Plan: Patient is a 57-year-old male with PMH CAD, s/p stent to LAD in 2012, HTN, dyslipidemia, DM II, gout, obesity presented to ER with complaint of dizziness today. Has had episodes recurrent dizziness over past 1.5 months. Chronic tinnitus DDX: Vertigo, orthostatic hypotension, hypoglycemia, angina, among others In ER afebrile, P: 134, BP 141/81, 95% on room air. WBC: 11.5. Negative D- dimer, glucose: 161. Initial high-sensitivity troponin: 6.1 CT head: There is no hemorrhage, mass effect, or evidence of acute territorial ischemia by CT criteria. In ER given 1 L NSS, meclizine Obtain orthostatic vitals Monitor on telemetry Obtain C-spine CT to rule out disc disease Meclizine as needed PT evaluation Trend troponin Echo CBC, CMP in a.m. (2) Sinus tachycardia: Plan: Initially noted to be sinus tachycardia rate 130s. Improved during ER course Received 1L NSS Monitor on telemetry (3) Neck pain: Plan: Reported episode of neck pressure today. Patient with prior history OK with symptom of neck pressure in past EKG without acute ST changes. Initial troponin negative Rule out ACS. Trend troponin, echo, repeat EKG in a.m. Consider cardiology consult if worsening, chest pain or elevating troponins (4) CAD (coronary artery disease): Plan: S/p OK, stent LAD in 2012 Continue aspirin, atorvastatin Work-up as above (5) Diabetes mellitus, type II: Plan: A1c: 8.8 on 10/11/2022 Hold home metformin. For stress prescribed semaglutide today however patient has not started yet. NovoLog sliding scale per protocol (6) HTN (hypertension): Plan: Continue lisinopril (7) Dyslipidemia: Plan: Continue atorvastatin (8) Gout: Plan: Continue allopurinol (9) Obesity: Plan: BMI: 42 Patient reports attempting lifestyle modifications and has lost 7 pounds in the past year. Encourage continued lifestyle modifications DVT Prophylaxis Lovenox SQ Full Code as per discussion with pt Follows with Dr Edenilson Ott for routine care Pt was seen and care coordinated with Dr Phillips. See addendum History of Present Illness Chief Complaint: Dizziness Primary Care Provider: Edenilson Ott DO Patient is a 57-year-old male with PMH CAD, s/p stent to LAD in 2012, HTN, dyslipidemia, DM II, gout, obesity presented to ER with complaint of dizziness. Patient states today he was working standing building a shelf when he had onset of dizziness described as slightly feeling off balance and a little bit of movement of the room. He states he sat down and felt like symptoms improved a little bit however were continuous for approximately 2 hours. Patient states he felt like he might of had a little bit of tightness to his neck today and states he got anxious about this as neck tightness was symptom with his OK. Denies any chest pain, shortness of breath, syncope, palpitations. States had another episode of dizziness today while in ER or getting up out of bed to transfer into another bed. Patient states approximately 1.5 months ago was decorating [employer] tree and walking around the tree stringing lights when he had onset of feeling dizzy. Since that time has had several episodes of similar dizziness that have occurred with bending down to tie shoes and standing up as well as with movement of neck looking up at christopher. Denies any associated nausea, vomiting. Patient reports chronic tinnitus to right ear and has been evaluated by ENT in past. Denies any changes with tinnitus or hearing loss recently. This evening after being in ER patient reports some generalized headache however has not noticed headache with prior dizziness episodes. Patient states notices some blurry vision with staring at a computer, otherwise denies vision issues. Denies fever/chills, diaphoresis, diarrhea, constipation, orthopnea, palpitations, cough, sore throat, choking, otalgia, rhinorrhea, abdominal pain, paresthesias, weakness, extremity weakness, extremity edema, rashes, urinary symptoms. Allergies Allergy/AdvReac Type Severity Reaction Status Date / Time No Known Allergies Allergy Unverified 12/04/22 17:33 Home Medications Medication Instructions Recorded Confirmed Type allopurinol 300 mg tablet 300 mg PO QAM 12/04/22 12/04/22 History aspirin 81 mg tablet,delayed 81 mg PO DAILY 12/04/22 12/04/22 History release atorvastatin 80 mg tablet 80 mg PO QAM 12/04/22 12/04/22 History lisinopril 10 mg tablet 10 mg PO QAM 12/04/22 12/04/22 History metformin 500 mg tablet,extended 1,000 mg PO QAM 12/04/22 12/04/22 History release 24 hr nitroglycerin 0.4 mg sublingual 0.4 mg sublingual UD PRN Chest Pain 12/04/22 0 12/04/22 History tablet (Nitrostat) semaglutide 3 mg tablet (Rybelsus) 3 mg PO QAM 12/04/22 12/04/22 History sulindac 200 mg tablet 200 mg PO BID PRN as directed 12/04/22 12/04/22 History Past Med/Surg History Medical History (Updated 12/04/22 @ 19:28 by Karey Johnson PA-C) CAD (coronary artery disease) Diabetes mellitus, type II Dyslipidemia Gout HTN (hypertension) Obesity Surgical History (Updated 12/04/22 @ 19:21 by Karey Johnson PA-C) H/O uvulectomy Hx of cardiac cath Hx of tonsillectomy Family History (Updated 12/04/22 @ 19:21 by Karey Johnson PA-C) Other Cancer Dementia Diabetes Hypertension Prostate cancer Social History (Updated 12/04/22 @ 19:21 by Karey Johnson PA-C) Smoking Status: Never smoker Hx Alcohol Use: No Hx Substance Use: No Preferred Language: [place] Feels Safe at Home: Yes Review of Systems Review of Systems: All systems reviewed & are unremarkable except as noted in HPI & below Physical Exam Physical Exam: General: no distress, obese Head: normocephalic, atraumatic Eyes: PERRL, EOM's intact, no nystagmus, conjunctiva non-injected, anicteric ENT: normal inspection external ears, nose, mucous membranes moist Neck: supple, trachea midline, non-tender Lungs: clear, no respiratory distress, no wheezing/rhonchi/rales CV: RRR, no murmur, trace pretibial edema Abd: Protuberant, normal BS, soft, non-tender Ext: no cyanosis, no calf tenderness Neuro: A&O x 3, no focal deficits noted, normal affect Skin: warm, dry Results & Data Results & Data ([facility]) Vital Signs (Past 12 Hours) Vital Signs Temp Pulse Pulse Resp BP BP Pulse Ox 12/04/22 17:21 12/04/22 17:00 105 H 18 142/95 H 95 12/04/22 15:10 119 H 20 127/81 94 12/04/22 13:24 37.2 C 134 H 20 141/81 H 95 O2 Del Method 12/04/22 17:21 Room Air 12/04/22 17:00 12/04/22 15:10 Room Air 12/04/22 13:24 Room Air Laboratory Results Short CBC 12/04/22 Range/Units 14:10 WBC 11.59 H (4.8-10.8) K/ul Hgb 15.4 (14.0-18.0) g/dl Hct 44.0 (40.1-51.0) % Plt Count 209 (130-400) K/uL BMP 12/04/22 14:10 Sodium 137 Potassium 4.6 Chloride 103 Carbon Dioxide 25 BUN 19 Creatinine 1.08 Glucose 161 H Calcium 8.9 Liver Function 12/04/22 Range/Units 14:10 Total Bilirubin 0.7 (0.2-1.0) mg/dl AST 43 H (13-39) U/L ALT 63 H (7-52) U/L Alkaline Phosphatase 162 H (34-104) U/L Albumin 4.3 (3.4-5.0) gm/dl Diagnostic Findings Head CT 12/04/22 15:52 CT SCAN OF THE BRAIN WITHOUT IV CONTRAST CLINICAL HISTORY: Dizziness. COMPARISON STUDY: No priors. TECHNIQUE: Unenhanced axial CT scan of the brain is performed from the vertex to the skull base. A dose lowering technique was utilized adhering to the principles of ALARA. CT DOSE: 537.48 mGy.cm FINDINGS: Brain parenchyma: There is minimal subcortical and periventricular microangiopathic disease. There is no hemorrhage, mass effect, or evidence of acute territorial ischemia by CT criteria. A chronic lacunar infarct is noted in the left basal ganglia. Chairez-white matter differentiation is preserved. No extra-axial fluid collection is seen. Ventricles, sulci, cisterns: Normal configuration. Intracranial vasculature: There is atherosclerotic calcification of the cavernous carotid arteries. Calvarium: Unremarkable. Sinuses and mastoids: The visualized paranasal sinuses are clear. There is trace left mastoid effusion. The right mastoid air cells are well pneumatized. Orbits: The bony orbits are grossly intact. IMPRESSION: There is no hemorrhage, mass effect, or evidence of acute territorial ischemia by CT criteria. ACT 112: Negative or not required by law. Electronically signed by: Michele Nicholson M.D. 12/04/2022 4:55 PM Chest X-Ray 12/04/22 15:53 XR chest 2V PA/lateral CLINICAL HISTORY: dizziness TECHNIQUE: 2 views of the chest were obtained. Comparison: Comparison is made to chest radiograph 10/07/2013 FINDINGS: No lines and tubes are seen. Cardiomegaly is noted. Prominence and cephalization of the vasculature is seen. No evidence of pleural effusion or pneumothorax. IMPRESSION: Cardiomegaly and mild pulmonary edema. ACT 112: Negative or not required by law. Electronically signed by: Davidson Lozano M.D. 12/04/2022 4:56 PM ECG Rate (beats per minute): 127 Rhythm: sinus tachycardia Supervising Physician Co-Signing Physician Notes Patient is a 57-year-old male with history of coronary artery disease, hypertension, diabetes mellitus and other medical following presents with history of recurrent episodes of dizziness. Patient describes it as being off balance, room spinning this. Also states having associated neck tightness. Reports chronic tinnitus which is unchanged. Denies any head trauma, loss of consciousness. Denies any nausea, vomiting. States having recently diagnosed to have oral thrush which she completed treatment. Reports generalized headache and chronic intermittent blurry vision which she attributes to diabetes mellitus. Please review HPI for complete details of presentation. Admits to being not checking his blood glucose levels on a regular basis. Blood work reviewed. On exam patient is obese, no apparent distress, normocephalic/atraumatic, EOMI, normal breath sounds, clear to auscultation, distant heart sounds, no murmur, no pedal edema, abdomen soft, nontender, normal bowel sounds, alert, awake, oriented, grossly no focal deficits. Patient is admitted for management of recurrent dizziness. We will check resting echo, orthostatics. Monitor for any arrhythmias. Meclizine as needed. PT OT. Fall precautions. CT neck pending. Agree with trending cardiac enzymes. Consider cardiology evaluation if needed. I personally reviewed the record. Patient is interviewed and examined at bedside. Patient's care is coordinated with Karey Johnson PA-C. Please refer to the documentation above for details of patient's presentation and for discussion of other issues.
[2022-12-04] MEDS ORDERED: MECLIZINE HCL 25 MG TAB PO PRN (19:32)
[2022-12-04] MEDS ORDERED: CARBOHYDRATES FOR HYPOGLYCEMIA PO PRN (19:32)
[2022-12-04] MEDS ORDERED: ACETAMINOPHEN 325 MG TAB PO PRN (19:32)
[2022-12-04] MEDS ORDERED: GLUCOSE 10 TAB/TUBE PO PRN (19:32)
[2022-12-04] MEDS ORDERED: DEXTROSE 50% 50 ML SYRINGE IV PRN (19:32)
[2022-12-04] MEDS ORDERED: GLUCOSE 40% GEL 15 GM TUBE PO PRN (19:32)
[2022-12-04] MEDS ORDERED: GLUCAGON FOR INJ 1 MG VIAL SQ PRN (19:32)
[2022-12-04] MEDS ORDERED: POLYETHYLENE (MIRALAX) 17 GM PACK PO PRN (19:32)
[2022-12-04] MEDS ORDERED: ENOXAPARIN INJ 40 MG/0.4 ML SYR SQ SCH (20:00)
--- NOTE | 2022-12-04 21:36 | CT Scan Report ---
CT cervical spine wo con CLINICAL HISTORY: neck pain, r/o DJD TECHNIQUE: Multidetector row helical CT of the cervical spine was performed without administration of intravenous contrast. Coronal and sagittal reformations were obtained. Automated dose lowering techn iques and/or adjustment according to patient size were utilized for this exam. Comparison: Comparison is made to CT soft tissue neck 05/04/2007 FINDINGS: No acute fractures or subluxations are identified. Degenerative changes are seen in the visualized sp ine. These included osteophyte formation and disc space narrowing most prominent at C6-C7. Incidental note is made of a bone island in the right transverse process of C3. The alignment is normal. Soft t issues are unremarkable. IMPRESSION: Degenerative changes are seen most prominent at C6-C7. No acute abnormality is seen. ACT 112: Negative or not required by law. Electronically signed by: Davidson Lozano M.D. 12/04/2022 9:33 PM
[2022-12-04] MEDS: INSULIN ASPART PER UNIT SC SCH (21:54)
[2022-12-05 01:34] LABS: Appearance Urine Clear (Clear); Bilirubin Urine Negative (Negative); Blood Urine Negative (Negative); Color Urine Yellow; Glucose Urine UA Trace (Negative); Ketones Urine Negative (Negative); Leukocyte Esterase Urine Negative (Negative); Nitrite Urine Negative (Negative); Protein Urine Negative (Negative); Urobilinogen Urine Negative (Negative)
[2022-12-05 02:35] LABS: Basophils # (auto) 0.02 K/uL (0-0.2); Basophils % (auto) 0.2 %; Eosinophils # (auto) 0.11 K/uL (0-0.50); Eosinophils % (auto) 1.2 %; Hematocrit (blood only) 40.7 % (40.1-51.0); Hemoglobin 13.9 g/dl (14.0-18.0); Immature Granulocytes # (auto) 0.03 K/uL (0.00-0.02); Immature Granulocytes % (auto) 0.3 %; Lymphocytes # (auto) 3.14 K/uL (1.2-3.4); Lymphocytes % (auto) 34.7 %; Mean Corpuscular Hemoglobin 31.7 pg (25.0-34.0); Mean Corpuscular Hgb Conc 34.2 g/dL (32.0-36.0); Mean Corpuscular Volume 92.7 fL (80.0-100.0); Mean Platelet Volume 10.9 fL (9.4-12.4); Monocytes # (auto) 0.69 K/uL (0.24-0.82); Monocytes % (auto) 7.6 %; Neutrophils # (auto) 5.06 K/uL (1.4-6.5); Platelet Count 169 K/uL (130-400); RDW Coefficient of Variation 13.2 % (11.5-14.5); Red Blood Count 4.39 M/uL (4.63-6.08); White Blood Count 9.05 K/ul (4.8-10.8)
[2022-12-05 02:56] LABS: Albumin Globulin Ratio 1.5 (0.9-2); Albumin Level 3.9 gm/dl (3.4-5.0); BUN Creatinine Ratio 17.5 (10-20); Bilirubin,Total 0.7 mg/dl (0.2-1.0); Calcium 8.1 mg/dl (8.5-10.1); Creatinine Clr Calc Pharmacy 98.8 ml/min; Est GFR (Non-African American) 80.3 ml/min; Globulin 2.6 gm/dl (2.5-4.0); Potassium 3.9 mmol/L (3.5-5.1); Total Protein 6.5 gm/dl (6.0-8.3)
[2022-12-05] MEDS: INSULIN ASPART PER UNIT SC SCH ×2 (08:13→12:15)
[2022-12-05] MEDS ORDERED: allopurinoL 300 MG TAB PO SCH (09:00)
[2022-12-05] MEDS ORDERED: ASPIRIN 81 MG ECTAB PO SCH (09:00)
[2022-12-05] MEDS ORDERED: lisinopril 10 MG TAB PO SCH (09:00)
[2022-12-05] MEDS ORDERED: ATORVASTATIN 40 MG TAB PO SCH (09:00)
--- NOTE | 2022-12-05 10:45 | Hospitalist Progress Note ---
Date of Service December 05, 2022 Assessment & Plan (1) Dizziness: Plan: Patient is a 57-year-old male with PMH CAD, s/p stent to LAD in 2012, HTN, dyslipidemia, DM II, gout, obesity presented to ER with complaint of dizziness today. Has had episodes recurrent dizziness over past 1.5 months. Chronic tinnitus DDX: Vertigo, orthostatic hypotension, hypoglycemia, angina, among others In ER afebrile, P: 134, BP 141/81, 95% on room air. WBC: 11.5. Negative D- dimer, glucose: 161. Initial high-sensitivity troponin: 6.1 CT head: There is no hemorrhage, mass effect, or evidence of acute territorial ischemia by CT criteria. In ER given 1 L NSS, meclizine Obtained orthostatic vitals Monitor on telemetry Obtain C-spine CT to rule out disc disease - Degenerative changes are seen most prominent at C6-C7. No acute abnormality is seen. Meclizine as needed PT evaluation - not able to obtain today Trended troponin - negative Echo EF 55 to 60%. There is mild concentric LVH. No regional wall motion abnormalities noted. No significant valvular pathology. (2) Sinus tachycardia: Plan: Initially noted to be sinus tachycardia rate 130s. Improved during ER course Received 1L NSS Monitor on telemetry 12/05 - Pt is in sinus rhythm , current HR 83 (3) Neck pain: Plan: Reported episode of neck pressure on admission. Patient with prior history MT with symptom of neck pressure in past. EKG without acute ST changes. Initial troponin negative, repeated trop negat. Rule out ACS. Trend troponin, echo, repeat EKG in a.m., as above (4) CAD (coronary artery disease): Plan: S/p MT, stent LAD in 2012 Continue aspirin, atorvastatin Work-up as above (5) Diabetes mellitus, type II: Plan: A1c: 8.8 on 10/11/2022 Hold home metformin. Patient reports fluctuating blood sugar and contacted his PCP. NovoLog sliding scale per protocol Outpatient follow-up (6) HTN (hypertension): Plan: Continue lisinopril (7) Dyslipidemia: Plan: Continue atorvastatin (8) Gout: Plan: Continue allopurinol (9) Obesity: Plan: BMI: 42 Patient reports attempting lifestyle modifications and has lost 7 pounds in the past year. Encourage continued lifestyle modifications DVT Prophylaxis- Lovenox SQ Full Code as per discussion with pt Follows with Dr Edenilson Ott for routine care Admission and Anticipated Discharge Date Admission Date: December 04, 2022 Subjective Pt seen in follow up of dizziness Currently sitting up in bed, in no acute distress. Patient's present at the bedside. Currently denies any dizziness. Denies headache or chest pain or neck pain. Overall feels better. Discussed results of his echocardiogram and other cardiac studies. PT is still pending, however unfortunately most likely not be done today. Patient is interested in discharge and outpatient follow-up. Review of Systems Review of Systems: All systems reviewed & are unremarkable except as noted in Subjective Physical Exam Physical Exam: General: no distress, obese Head: normocephalic, atraumatic Eyes: PERRL, EOM's intact, no nystagmus, conjunctiva non-injected, anicteric ENT: normal inspection external ears, nose, mucous membranes moist Neck: supple, trachea midline, non-tender Lungs: clear, no respiratory distress, no wheezing/rhonchi/rales CV: RRR, no murmur, trace pretibial edema Abd: normal BS, soft, non-tender, +obese Ext: moves extremities Neuro: A&O x 3, speech fluent, no facial asymmetry, moves extremities Skin: warm, dry Results & Data Results & Data ([facility]) Vital Signs (Past 12 Hours) Vital Signs Temp Pulse Pulse Resp BP Pulse Ox O2 Del Method 12/05/22 07:54 81 12/05/22 07:32 36.7 C 81 18 165/80 H 95 Room Air 12/05/22 04:24 36.7 C 75 20 103/66 94 Room Air 12/04/22 23:55 36.7 C 86 20 123/79 95 Room Air Laboratory Results 12/05/22 12/05/22 12/05/22 Range/Units 08:04 02:15 02:15 WBC (4.8-10.8) K/ul RBC (4.63-6.08) M/uL Hgb (14.0-18.0) g/dl Hct (40.1-51.0) % MCV (80.0-100.0) fL MCH (25.0-34.0) pg MCHC (32.0-36.0) g/dL RDW Std Deviation (36.4-46.3) fL RDW Coeff of Mauricio (11.5-14.5) % Plt Count (130-400) K/uL MPV (9.4-12.4) fL Immature Gran % (Auto) % Neut % (Auto) % Lymph % (Auto) % Lawrence % (Auto) % Eos % (Auto) % Baso % (Auto) % Neut # (Auto) (1.4-6.5) K/uL Lymph # (Auto) (1.2-3.4) K/uL Lawrence # (Auto) (0.24-0.82) K/uL Eos # (Auto) (0-0.50) K/uL Baso # (Auto) (0-0.2) K/uL Immature Gran # (Auto) (0.00-0.02) K/uL D-Dimer (0-500) ug/L FEU Sodium 138 (136-145) mmol/L Potassium 3.9 (3.5-5.1) mmol/L Chloride 103 (98-107) mmol/L Carbon Dioxide 29 (21-32) mmol/L Anion Gap 6 (3-11) BUN 18 (6-23) mg/dl Creatinine 1.03 (0.6-1.4) mg/dl Est Cr Clr Drug Dosing 98.8 ml/min Est GFR ( Amer) 93.0 ml/min Est GFR (Non-Af Amer) 80.3 ml/min BUN/Creatinine Ratio 17.5 (10-20) Glucose 138 H (70-99(Fasting)) mg/dl POC Glucose 146 H (70-99) mg/dl Calcium 8.1 L (8.5-10.1) mg/dl Total Bilirubin 0.7 (0.2-1.0) mg/dl AST 30 (13-39) U/L ALT 51 (7-52) U/L Alkaline Phosphatase 131 H (34-104) U/L Troponin I High Sens 7.9 (0-20) pg/ml B-Natriuretic Peptide (0-100) pg/ml Total Protein 6.5 (6.0-8.3) gm/dl Albumin 3.9 (3.4-5.0) gm/dl Globulin 2.6 (2.5-4.0) gm/dl Albumin/Globulin Ratio 1.5 (0.9-2) TSH (0.300-4.500) uIu/ml Urine Color Urine Appearance (Clear) Urine pH (4.5-7.5) Ur Specific [place] (1.000-1.030) Urine Protein (Negative) Urine Glucose (UA) (Negative) Urine Ketones (Negative) Urine Blood (Negative) Urine Nitrite (Negative) Urine Bilirubin (Negative) Urine Urobilinogen (Negative) Ur Leukocyte Esterase (Negative) SARS-CoV-2, RNA, NAAT (NEGATIVE) 12/05/22 12/04/22 12/04/22 Range/Units 02:15 Unknown 21:41 WBC 9.05 (4.8-10.8) K/ul RBC 4.39 L (4.63-6.08) M/uL Hgb 13.9 L (14.0-18.0) g/dl Hct 40.7 (40.1-51.0) % MCV 92.7 (80.0-100.0) fL MCH 31.7 (25.0-34.0) pg MCHC 34.2 (32.0-36.0) g/dL RDW Std Deviation 45.0 (36.4-46.3) fL RDW Coeff of Mauricio 13.2 (11.5-14.5) % Plt Count 169 (130-400) K/uL MPV 10.9 (9.4-12.4) fL Immature Gran % (Auto) 0.3 % Neut % (Auto) 56.0 % Lymph % (Auto) 34.7 % Lawrence % (Auto) 7.6 % Eos % (Auto) 1.2 % Baso % (Auto) 0.2 % Neut # (Auto) 5.06 (1.4-6.5) K/uL Lymph # (Auto) 3.14 (1.2-3.4) K/uL Lawrence # (Auto) 0.69 (0.24-0.82) K/uL Eos # (Auto) 0.11 (0-0.50) K/uL Baso # (Auto) 0.02 (0-0.2) K/uL Immature Gran # (Auto) 0.03 H (0.00-0.02) K/uL D-Dimer (0-500) ug/L FEU Sodium (136-145) mmol/L Potassium (3.5-5.1) mmol/L Chloride (98-107) mmol/L Carbon Dioxide (21-32) mmol/L Anion Gap (3-11) BUN (6-23) mg/dl Creatinine (0.6-1.4) mg/dl Est Cr Clr Drug Dosing ml/min Est GFR ( Amer) ml/min Est GFR (Non-Af Amer) ml/min BUN/Creatinine Ratio (10-20) Glucose (70-99(Fasting)) mg/dl POC Glucose 166 H (70-99) mg/dl Calcium (8.5-10.1) mg/dl Total Bilirubin (0.2-1.0) mg/dl AST (13-39) U/L ALT (7-52) U/L Alkaline Phosphatase (34-104) U/L Troponin I High Sens (0-20) pg/ml B-Natriuretic Peptide (0-100) pg/ml Total Protein (6.0-8.3) gm/dl Albumin (3.4-5.0) gm/dl Globulin (2.5-4.0) gm/dl Albumin/Globulin Ratio (0.9-2) TSH (0.300-4.500) uIu/ml Urine Color Yellow Urine Appearance Clear (Clear) Urine pH 6.0 (4.5-7.5) Ur Specific [place] 1.020 (1.000-1.030) Urine Protein Negative (Negative) Urine Glucose (UA) Trace H (Negative) Urine Ketones Negative (Negative) Urine Blood Negative (Negative) Urine Nitrite Negative (Negative) Urine Bilirubin Negative (Negative) Urine Urobilinogen Negative (Negative) Ur Leukocyte Esterase Negative (Negative) SARS-CoV-2, RNA, NAAT (NEGATIVE) 12/04/22 12/04/22 12/04/22 Range/Units 20:37 18:23 16:36 WBC (4.8-10.8) K/ul RBC (4.63-6.08) M/uL Hgb (14.0-18.0) g/dl Hct (40.1-51.0) % MCV (80.0-100.0) fL MCH (25.0-34.0) pg MCHC (32.0-36.0) g/dL RDW Std Deviation (36.4-46.3) fL RDW Coeff of Mauricio (11.5-14.5) % Plt Count (130-400) K/uL MPV (9.4-12.4) fL Immature Gran % (Auto) % Neut % (Auto) % Lymph % (Auto) % Lawrence % (Auto) % Eos % (Auto) % Baso % (Auto) % Neut # (Auto) (1.4-6.5) K/uL Lymph # (Auto) (1.2-3.4) K/uL Lawrence # (Auto) (0.24-0.82) K/uL Eos # (Auto) (0-0.50) K/uL Baso # (Auto) (0-0.2) K/uL Immature Gran # (Auto) (0.00-0.02) K/uL D-Dimer (0-500) ug/L FEU Sodium (136-145) mmol/L Potassium (3.5-5.1) mmol/L Chloride (98-107) mmol/L Carbon Dioxide (21-32) mmol/L Anion Gap (3-11) BUN (6-23) mg/dl Creatinine (0.6-1.4) mg/dl Est Cr Clr Drug Dosing ml/min Est GFR ( Amer) ml/min Est GFR (Non-Af Amer) ml/min BUN/Creatinine Ratio (10-20) Glucose (70-99(Fasting)) mg/dl POC Glucose (70-99) mg/dl Calcium (8.5-10.1) mg/dl Total Bilirubin (0.2-1.0) mg/dl AST (13-39) U/L ALT (7-52) U/L Alkaline Phosphatase (34-104) U/L Troponin I High Sens 10.1 D (0-20) pg/ml B-Natriuretic Peptide 8 (0-100) pg/ml Total Protein (6.0-8.3) gm/dl Albumin (3.4-5.0) gm/dl Globulin (2.5-4.0) gm/dl Albumin/Globulin Ratio (0.9-2) TSH (0.300-4.500) uIu/ml Urine Color Urine Appearance (Clear) Urine pH (4.5-7.5) Ur Specific [place] (1.000-1.030) Urine Protein (Negative) Urine Glucose (UA) (Negative) Urine Ketones (Negative) Urine Blood (Negative) Urine Nitrite (Negative) Urine Bilirubin (Negative) Urine Urobilinogen (Negative) Ur Leukocyte Esterase (Negative) SARS-CoV-2, RNA, NAAT NEGATIVE (NEGATIVE) 12/04/22 12/04/22 12/04/22 Range/Units 14:10 14:10 14:10 WBC (4.8-10.8) K/ul RBC (4.63-6.08) M/uL Hgb (14.0-18.0) g/dl Hct (40.1-51.0) % MCV (80.0-100.0) fL MCH (25.0-34.0) pg MCHC (32.0-36.0) g/dL RDW Std Deviation (36.4-46.3) fL RDW Coeff of Mauricio (11.5-14.5) % Plt Count (130-400) K/uL MPV (9.4-12.4) fL Immature Gran % (Auto) % Neut % (Auto) % Lymph % (Auto) % Lawrence % (Auto) % Eos % (Auto) % Baso % (Auto) % Neut # (Auto) (1.4-6.5) K/uL Lymph # (Auto) (1.2-3.4) K/uL Lawrence # (Auto) (0.24-0.82) K/uL Eos # (Auto) (0-0.50) K/uL Baso # (Auto) (0-0.2) K/uL Immature Gran # (Auto) (0.00-0.02) K/uL D-Dimer 210 (0-500) ug/L FEU Sodium 137 (136-145) mmol/L Potassium 4.6 (3.5-5.1) mmol/L Chloride 103 (98-107) mmol/L Carbon Dioxide 25 (21-32) mmol/L Anion Gap 9 (3-11) BUN 19 (6-23) mg/dl Creatinine 1.08 (0.6-1.4) mg/dl Est Cr Clr Drug Dosing 94.5 ml/min Est GFR ( Amer) 87.8 ml/min Est GFR (Non-Af Amer) 75.8 ml/min BUN/Creatinine Ratio 17.6 (10-20) Glucose 161 H (70-99(Fasting)) mg/dl POC Glucose (70-99) mg/dl Calcium 8.9 (8.5-10.1) mg/dl Total Bilirubin 0.7 (0.2-1.0) mg/dl AST 43 H (13-39) U/L ALT 63 H (7-52) U/L Alkaline Phosphatase 162 H (34-104) U/L Troponin I High Sens 6.1 (0-20) pg/ml B-Natriuretic Peptide (0-100) pg/ml Total Protein 7.4 (6.0-8.3) gm/dl Albumin 4.3 (3.4-5.0) gm/dl Globulin 3.1 (2.5-4.0) gm/dl Albumin/Globulin Ratio 1.4 (0.9-2) TSH 0.946 (0.300-4.500) uIu/ml Urine Color Urine Appearance (Clear) Urine pH (4.5-7.5) Ur Specific [place] (1.000-1.030) Urine Protein (Negative) Urine Glucose (UA) (Negative) Urine Ketones (Negative) Urine Blood (Negative) Urine Nitrite (Negative) Urine Bilirubin (Negative) Urine Urobilinogen (Negative) Ur Leukocyte Esterase (Negative) SARS-CoV-2, RNA, NAAT (NEGATIVE) 12/04/22 12/04/22 Range/Units 14:10 13:29 WBC 11.59 H (4.8-10.8) K/ul RBC 4.80 (4.63-6.08) M/uL Hgb 15.4 (14.0-18.0) g/dl Hct 44.0 (40.1-51.0) % MCV 91.7 (80.0-100.0) fL MCH 32.1 (25.0-34.0) pg MCHC 35.0 (32.0-36.0) g/dL RDW Std Deviation 43.8 (36.4-46.3) fL RDW Coeff of Mauricio 13.1 (11.5-14.5) % Plt Count 209 (130-400) K/uL MPV 11.2 (9.4-12.4) fL Immature Gran % (Auto) 0.3 % Neut % (Auto) 76.3 % Lymph % (Auto) 17.3 % Lawrence % (Auto) 5.4 % Eos % (Auto) 0.5 % Baso % (Auto) 0.2 % Neut # (Auto) 8.83 H (1.4-6.5) K/uL Lymph # (Auto) 2.01 (1.2-3.4) K/uL Lawrence # (Auto) 0.63 (0.24-0.82) K/uL Eos # (Auto) 0.06 (0-0.50) K/uL Baso # (Auto) 0.02 (0-0.2) K/uL Immature Gran # (Auto) 0.04 H (0.00-0.02) K/uL D-Dimer (0-500) ug/L FEU Sodium (136-145) mmol/L Potassium (3.5-5.1) mmol/L Chloride (98-107) mmol/L Carbon Dioxide (21-32) mmol/L Anion Gap (3-11) BUN (6-23) mg/dl Creatinine (0.6-1.4) mg/dl Est Cr Clr Drug Dosing ml/min Est GFR ( Amer) ml/min Est GFR (Non-Af Amer) ml/min BUN/Creatinine Ratio (10-20) Glucose (70-99(Fasting)) mg/dl POC Glucose 156 H (70-99) mg/dl Calcium (8.5-10.1) mg/dl Total Bilirubin (0.2-1.0) mg/dl AST (13-39) U/L ALT (7-52) U/L Alkaline Phosphatase (34-104) U/L Troponin I High Sens (0-20) pg/ml B-Natriuretic Peptide (0-100) pg/ml Total Protein (6.0-8.3) gm/dl Albumin (3.4-5.0) gm/dl Globulin (2.5-4.0) gm/dl Albumin/Globulin Ratio (0.9-2) TSH (0.300-4.500) uIu/ml Urine Color Urine Appearance (Clear) Urine pH (4.5-7.5) Ur Specific [place] (1.000-1.030) Urine Protein (Negative) Urine Glucose (UA) (Negative) Urine Ketones (Negative) Urine Blood (Negative) Urine Nitrite (Negative) Urine Bilirubin (Negative) Urine Urobilinogen (Negative) Ur Leukocyte Esterase (Negative) SARS-CoV-2, RNA, NAAT (NEGATIVE) Medications Administered Current Inpatient Medications Acetaminophen (Acetaminophen 325 Mg Tab) 650 mg PO Q4H PRN PRN Reason: Pain or Fever Stop: 01/03/23 19:31 Allopurinol ([facility] 300 Mg Tab) [facility] Stop: 01/04/23 08:59 Last Admin: 12/05/22 08:09 Dose: 300 mg Aspirin (Aspirin 81 Mg Ectab) 81 mg PO DAILY [facility] Stop: 01/04/23 08:59 Last Admin: 12/05/22 08:09 Dose: 81 mg Atorvastatin Calcium (Atorvastatin 40 Mg Tab) 80 mg PO QAM [facility] Stop: 01/04/23 08:59 Last Admin: 12/05/22 08:09 Dose: 80 mg Dextrose (Dextrose 50% 50 Ml Syringe) 25 - 50 ml IV UD PRN; Protocol PRN Reason: Hypoglycemia Protocol Stop: 01/03/23 19:31 Enoxaparin Sodium (Enoxaparin Inj 40 Mg/0.4 Ml Syr) 40 mg SQ Q24H [facility] Stop: 01/03/23 19:59 Last Admin: 12/04/22 22:26 Dose: 40 mg Glucagon (Glucagon For Inj 1 Mg Vial) 1 mg SQ UD PRN; Protocol PRN Reason: Hypoglycemia Protocol Stop: 01/03/23 19:31 Glucose (Glucose 40% Gel 15 Gm Tube) 15 - 30 gm PO UD PRN; Protocol PRN Reason: Hypoglycemia Protocol Stop: 01/03/23 19:31 Glucose (Glucose 10 Tab/Tube) 4 - 8 tab PO UD PRN; Protocol PRN Reason: Hypoglycemia Treatment Stop: 01/03/23 19:31 Insulin Aspart (Insulin Aspart Per Unit) 0 units [facility] Stop: 01/03/23 20:59 Last Admin: 12/05/22 08:13 Dose: 7 units Lisinopril (Lisinopril 10 Mg Tab) 10 mg PO QAM [facility] Stop: 01/04/23 08:59 Last Admin: 12/05/22 08:09 Dose: 10 mg Meclizine HCl (Meclizine Hcl 25 Mg Tab) 25 mg PO Q8H PRN PRN Reason: vertigo Stop: 01/03/23 19:31 Miscellaneous (Carbohydrates For Hypoglycemia ) 15 - 30 gm PO UD PRN PRN Reason: Hypoglycemia Protocol Stop: 01/03/23 19:31 Polyethylene Glycol (Polyethylene (Miralax) 17 Gm Pack) 17 gm PO DAILY PRN PRN Reason: Constipation Stop: 01/03/23 19:31
--- NOTE | 2022-12-05 16:33 | Discharge Summary ---
Date of Service December 05, 2022 Admission HPI Per Admitting Provider Patient is a 57-year-old male with PMH CAD, s/p stent to LAD in 2012, HTN, dyslipidemia, DM II, gout, obesity presented to ER with complaint of dizziness. Patient states today he was working standing building a shelf when he had onset of dizziness described as slightly feeling off balance and a little bit of movement of the room. He states he sat down and felt like symptoms improved a little bit however were continuous for approximately 2 hours. Patient states he felt like he might of had a little bit of tightness to his neck today and states he got anxious about this as neck tightness was symptom with his IN. Denies any chest pain, shortness of breath, syncope, palpitations. States had another episode of dizziness today while in ER or getting up out of bed to transfer into another bed. 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 Since that time has had several episodes of similar dizziness that have occurred with bending down to tie shoes and standing up as well as with movement of neck looking up at christopher. Denies any associated nausea, vomiting. Patient reports chronic tinnitus to right ear and has been evaluated by ENT in past. Denies any changes with tinnitus or hearing loss recently. This evening after being in ER patient reports some generalized headache however has not noticed headache with prior dizziness episodes. Patient states notices some blurry vision with staring at a computer, otherwise denies vision issues. Denies fever/chills, diaphoresis, diarrhea, constipation, orthopnea, palpitations, cough, sore throat, choking, otalgia, rhinorrhea, abdominal pain, paresthesias, weakness, extremity weakness, extremity edema, rashes, urinary symptoms. Admission Exam Per Admitting Provider General: no distress, obese Head: normocephalic, atraumatic Eyes: PERRL, EOM's intact, no nystagmus, conjunctiva non-injected, anicteric ENT: normal inspection external ears, nose, mucous membranes moist Neck: supple, trachea midline, non-tender Lungs: clear, no respiratory distress, no wheezing/rhonchi/rales CV: RRR, no murmur, trace pretibial edema Abd: Protuberant, normal BS, soft, non-tender Ext: no cyanosis, no calf tenderness Neuro: A&O x 3, no focal deficits noted, normal affect Skin: warm, dry Principal Diagnosis Dizziness Discharge Exam General: no distress, obese Head: normocephalic, atraumatic Eyes: PERRL, EOM's intact, no nystagmus, conjunctiva non-injected, anicteric ENT: normal inspection external ears, nose, mucous membranes moist Neck: supple, trachea midline, non-tender Lungs: clear, no respiratory distress, no wheezing/rhonchi/rales CV: RRR, no murmur, trace pretibial edema Abd: normal BS, soft, non-tender, +obese Ext: moves extremities Neuro: A&O x 3, speech fluent, no facial asymmetry, moves extremities Skin: warm, dry Discharge Data Allergies Allergy/AdvReac Type Severity Reaction Status Date / Time No Known Allergies Allergy Unverified 12/04/22 17:33 Consultations 12/04/22 17:45 ED Decision to Admit Stat Ordered Studies 12/04/22 15:52 CT head/brain wo con Stat FINDINGS: Brain parenchyma: There is minimal subcortical and periventricular microangiopathic disease. There is no hemorrhage, mass effect, or evidence of acute territorial ischemia by CT criteria. A chronic lacunar infarct is noted in the left basal ganglia. Chairez-white matter differentiation is preserved. No extra-axial fluid collection is seen. Ventricles, sulci, cisterns: Normal configuration. Intracranial vasculature: There is atherosclerotic calcification of the cavernous carotid arteries. Calvarium: Unremarkable. Sinuses and mastoids: The visualized paranasal sinuses are clear. There is trace left mastoid effusion. The right mastoid air cells are well pneumatized. Orbits: The bony orbits are grossly intact. IMPRESSION: There is no hemorrhage, mass effect, or evidence of acute territorial ischemia by CT criteria. 12/04/22 19:32 CT cervical spine wo con Routine FINDINGS: No acute fractures or subluxations are identified. Degenerative changes are seen in the visualized spine. These included osteophyte formation and disc space narrowing most prominent at C6-C7. Incidental note is made of a bone island in the right transverse process of C3. The alignment is normal. Soft tissues are unremarkable. IMPRESSION: Degenerative changes are seen most prominent at C6-C7. No acute abnormality is seen. Hospital Course (1) Dizziness: Patient is a 57-year-old male with PMH CAD, s/p stent to LAD in 2012, HTN, dyslipidemia, DM II, gout, obesity presented to ER with complaint of dizziness today. Has had episodes recurrent dizziness over past 1.5 months. Chronic tinnitus DDX: Vertigo, orthostatic hypotension, hypoglycemia, angina, among others In ER afebrile, P: 134, BP 141/81, 95% on room air. WBC: 11.5. Negative D- dimer, glucose: 161. Initial high-sensitivity troponin: 6.1 CT head: There is no hemorrhage, mass effect, or evidence of acute territorial ischemia by CT criteria. In ER given 1 L NSS, meclizine Obtained orthostatic vitals Monitor on telemetry Obtain C-spine CT to rule out disc disease - Degenerative changes are seen most prominent at C6-C7. No acute abnormality is seen. Meclizine as needed PT evaluation - not able to obtain today Trended troponin - negative Echo EF 55 to 60%. There is mild concentric LVH. No regional wall motion abnormalities noted. No significant valvular pathology. (2) Sinus tachycardia: Initially noted to be sinus tachycardia rate 130s. Improved during ER course Received 1L NSS Monitor on telemetry 12/05 - Pt is in sinus rhythm , current HR 83 (3) Neck pain: Reported episode of neck pressure on admission. Patient with prior history IN with symptom of neck pressure in past. EKG without acute ST changes. Initial troponin negative, repeated trop negat. Rule out ACS. Trend troponin, echo, EKG as above (4) CAD (coronary artery disease): S/p IN, stent LAD in 2012 Continue aspirin, atorvastatin Work-up as above (5) Diabetes mellitus, type II: A1c: 8.8 on 10/11/2022 Hold home metformin. Patient reports fluctuating blood sugar and contacted his PCP. NovoLog sliding scale per protocol Outpatient follow-up (6) HTN (hypertension): Continue lisinopril (7) Dyslipidemia: Continue atorvastatin (8) Gout: Continue allopurinol (9) Obesity: BMI: 42 Patient reports attempting lifestyle modifications and has lost 7 pounds in the past year. Encourage continued lifestyle modifications Total Time Total Time Spent Total Time Spent (In Minutes): 40 Discharge Plan Discharge Items Patient Disposition: Home - Self-Care Reason For Visit: DIZZINESS Discharge Diagnosis: Dizziness Activity: Per Instructions section Non-emergency contact: Primary Care Provider Call non-emergency contact if: you have any medication questions and your symptoms worsen Follow-up/Referrals: Edenilson Ott, DO [Primary Care Provider] - (Date & Time 12/12/2022 3:00 PM Provider Osiris Garcia PA-C Department [facility] ) Diet: Carb Consistent or DM2 and Heart Healthy Addtl Attending Provider Instructions: Follow-up with your primary care doctor, the appointment was scheduled for you for December 12. If you have dizziness again, further work-up can be done by your primary care doctor. As discussed, you can try physical therapy/Lauren maneuvers. If persistent, you can see ENT or specialized clinic at [facility] for vertigo/dizziness. Pending Studies at Discharge: No Stand-Alone Forms: My [facility] [employer], Smoking Cessation Medications and DC Order Prescriptions: Continued atorvastatin 80 mg tablet 80 mg PO QAM lisinopril 10 mg tablet 10 mg PO QAM allopurinol 300 mg tablet 300 mg PO QAM metformin 500 mg tablet extended release 24 hr 1,000 mg PO QAM aspirin [Aspirin Low-Strength] 81 mg Tablet,Delayed Release (Dr/Ec) 81 mg PO DAILY nitroglycerin [Nitrostat] 0.4 mg Tablet, Sublingual 0.4 mg sublingual UD PRN (Reason: Chest Pain) sulindac 200 mg Tablet 200 mg PO BID PRN (Reason: as directed) Rybelsus 3 mg Tablet 3 mg PO QAM Discharge Orders: Discharge Order (Routine); Ordered 12/05/22 Ordered By: Cyrus Isaac Admission Data Admit Date/Time: 12/04/22 18:22 Attending Provider: Cyrus Isaac Admit Provider: Flavio Phillips Primary Care Provider: Edenilson Ott Other Providers: Flavio Phillips
--- NOTE | 2022-12-06 05:12 | Electrocardiogram Report ---
Test Reason : Blood Pressure : / mmHG Vent. Rate : 076 BPM Atrial Rate : 076 BPM P-R Int : 164 ms QRS Dur : 080 ms QT Int : 382 ms P-R-T Axes : 035 061 056 degrees QTc Int : 429 ms Normal sinus rhythm Normal ECG When compared with ECG of 04-DEC-2022 14:00, Vent. rate has decreased BY 51 BPM Questionable change in QRS axis Confirmed by Charlie Singleton ([id number]) on 12/06/2022 5:12:19 AM Referred By: REFERRED SELF Confirmed By:Charlie Singleton
== END 2022-12-05 16:50 | disposition home or self-care (01) ==
LOC: ED 13:15 → EDINP 13:15 → SUATTDRO 18:22 → EDINP 19:19 → 2N 21:19